=== PATIENT | female | born 1995 | race Caucasian/White ===

== ENCOUNTER 2017-06-16 21:14 | Emergency (ER) | payer BC ==
[~2017-06-16] VITALS: Ht 154.9 cm; Wt 63.5 kg
[2017-06-16 21:20] VITALS: BP_SYST 146
[2017-06-16 22:08] LABS: BASOPHILS # (AUTO) 0.1 K/uL (0.0-0.2); BASOPHILS % (AUTO) 1.1 % (0.0-2.0); EOSINOPHILS # (AUTO) 0.2 K/uL (0.0-0.4); EOSINOPHILS % (AUTO) 2.6 % (0.0-4.0); HEMATOCRIT 36.9 % (36-48); HEMOGLOBIN 12.5 g/dL (12.0-16.0); LYMPHOCYTES % (AUTO) 25.8 % (20.5-51.5); MEAN CORPUSCULAR HEMOGLOBIN 28 pg (27-31); MEAN CORPUSCULAR HGB CONC 34 % (32-36); MEAN CORPUSCULAR VOLUME 81 fL (79.0-98.0); MONOCYTES # (AUTO) 0.7 K/uL (0.0-1.0); MONOCYTES % (AUTO) 9.4 % (1.7-9.3); NEUTROPHILS # (AUTO) 4.7 K/uL (1.8-7.7); NEUTROPHILS % (AUTO) 61.1 % (40.0-70.0); PLATELET COUNT (AUTO) 249 K/uL (130-430); RED BLOOD CELL COUNT(AUTO) 4.53 MIL/uL (4.2-6.2); RED CELL DISTRIBUTION WIDTH 12.5 % (9.0-15.0); WHITE BLOOD COUNT (AUTO) 7.7 K/uL (4.5-11.0)
[2017-06-16 22:13] LABS: CALCIUM 9.4 mg/dL (8.4-11.0); CREATININE 0.78 mg/dL (0.55-1.30); POTASSIUM 3.7 mmol/L (3.5-5.1)
[2017-06-16 22:18] LABS: ALBUMIN 3.9 g/dL (3.4-4.8); TOTAL BILIRUBIN 0.8 mg/dL (0.0-1.0)
[2017-06-16 22:26] LABS: PROTHROMBIN TIME 9.9 SECS (9.5-12.5)
[2017-06-16 22:31] LABS: BILIRUBIN,URINE NEGATIVE (NEGATIVE); BLOOD, URINE NEGATIVE (NEGATIVE); CLARITY/URINE SL HAZY (CLEAR); COLOR,URINE YELLOW (YELLOW); GLUCOSE,URINE NEGATIVE (NEGATIVE); KETONES,URINE NEGATIVE (NEGATIVE); LEUKOCYTE ESTERASE ,URINE NEGATIVE (NEGATIVE); NITRITE, URINE NEGATIVE (NEGATIVE); PROTEIN URINE NEGATIVE (NEGATIVE); UROBILINOGEN,URINE 0.2 (0.2-1.0)
[2017-06-17 00:04] VITALS: BP_SYST 132
== END 2017-06-17 00:04 | disposition home or self-care (01) ==
LOC: SED 21:14
DX: K62.5 Hemorrhage of anus and rectum (principal); Z88.2 Allergy status to sulfonamides
CPT/HCPCS: 36415; 80053; 81003; 85025; 85610-TC; 85730-TC; 99285

== ENCOUNTER 2021-01-25 19:29 | Emergency (ER) | payer SELFPAY ==
[~2021-01-25] VITALS: Ht 154.9 cm; Wt 72.6 kg
[2021-01-25 19:37] VITALS: BP_SYST 152
--- NOTE | 2021-01-25 19:54 | NUR ---
Patient to ER bed 05 to gown for evaluation. Side rails up. Report given to XAVIER Brown
--- NOTE | 2021-01-25 20:08 | NUR ---
PT ARRIVED TO ER FOR COMPLAINSTS OF CHEST TIGHTNESS AND ALLERGIC REACTION TODAY. PT HAS A BEARDED DRAGON AND STATES AFTER CLEANING ITS CAGE, SHE STARTED DEVELOPING HIVES AND SHORTNESS OF BREATH FROM IT. DEVELOPED INTO CHEST TIGHTNESS. PT STATES SHE TOOK A GENERIC CLARITEN AND IT HAS GOTTNE BETTER. CHEST TIGHTNESS IS GONE OF NOW. SHE STILL HAS A WHEEZE ACCORDING TO HER. A&OX4, -CP NOW, 0/10 PAIN
--- NOTE | 2021-01-25 20:14 | NUR ---
ER at bedside examining patient.
[2021-01-25] MEDS ORDERED: EPIN0.3P3 IM (20:29)
[2021-01-25] MEDS ORDERED: DIPHENHYDRAMINE HCL 12.5 MG/5 ML UDC PO ONE (20:30)
[2021-01-25] MEDS ORDERED: DEXAMETHASONE SOD PHOSPHATE 10 MG/ML VIAL PO ONE (20:30)
[2021-01-25] MEDS ORDERED: FAMOTIDINE 20 MG TABLET PO ONE (20:30)
--- NOTE | 2021-01-25 21:02 | NUR ---
Patient given written and verbal discharge instructions and verbalizes understanding. ER MD discussed with patient the results and treatment provided. Patient in stable condition. ID arm band removed. Rx of EPIPEN given. Patient educated on pain management and to follow up with PMD. Pain Scale 0/10. Opportunity for questions provided and answered. Medication side effect fact sheet provided.
[2021-01-25 21:04] VITALS: BP_SYST 152
== END 2021-01-25 21:02 | disposition home or self-care (01) ==
LOC: SED 19:29
DX: T78.40XA Allergy, unspecified, initial encounter (principal); Z88.2 Allergy status to sulfonamides; Z79.899 Other long term (current) drug therapy
CPT/HCPCS: 81025; 99284; J1100